=== PATIENT | male | born 1985 | race Caucasian/White ===

== ENCOUNTER 2019-05-07 13:32 | Emergency (ER) | payer BC ==
[~2019-05-07] VITALS: Ht 188 cm; Wt 63.5 kg
--- NOTE | 2019-05-07 14:02 | NUR ---
PT IS IN ROOM #1B. DR SCHAFER EVALUATED THE PT.
[2019-05-07] MEDS ORDERED: EMTRICITABINE 200 MG CAPSULE PO ONE (14:15)
[2019-05-07] MEDS ORDERED: TENOFOVIR DISOPROXIL FUMARATE 300 MG TABLET PO ONE (14:15)
[2019-05-07] MEDS ORDERED: EMTRICITABINE 200 MG CAPSULE ONE (14:21)
[2019-05-07] MEDS ORDERED: TENOFOVIR DISOPROXIL FUMARATE 300 MG TABLET ONE (14:22)
[2019-05-07] MEDS ORDERED: AZITHROMYCIN 250 MG TABLET PO ONE (14:30)
[2019-05-07] MEDS ORDERED: CEFTRIAXONE 500 MG VIAL IM ONE (14:30)
[2019-05-07] MEDS ORDERED: RALTEGRAVIR POTASSIUM 400 MG TABLET PO ONE ×2 (14:30→14:38)
[2019-05-07] MEDS ORDERED: CEFTRIAXONE 500 MG VIAL ONE (14:39)
[2019-05-07] MEDS ORDERED: LIDOCAINE HCL 2% 20 ML VIAL ONE (14:39)
[2019-05-07] MEDS ORDERED: AZITHROMYCIN 250 MG TABLET ONE (14:40)
--- NOTE | 2019-05-07 14:58 | NUR ---
PT WAS D/C'd TO HOME. D/C INSTRUCTIONS GIVEN TO THE PT BY DR SCHAFER.
[2019-05-07 15:00] VITALS: BP 128/78
[2019-05-10 12:14] LABS: *GC NAA Negative (Negative); *TRIC.VAG. NAA Negative (Negative)
== END 2019-05-07 15:00 | disposition home or self-care (01) ==
LOC: ER 13:32
DX: Z00.00 Encounter for general adult medical examination without abnormal findings (principal); F32.9 Major depressive disorder, single episode, unspecified; Z88.0 Allergy status to penicillin
CPT/HCPCS: 87491; 87806; 96372; 99284; J0696; J3490; A4663; J8499; Q0144